=== PATIENT | female | born 1955 | race Caucasian/White ===

== ENCOUNTER 2021-11-11 11:15 | Outpatient (CLI) | payer OTHER | END 2021-11-11 11:16 | disposition home or self-care (01) | LOC: CSHMAMMO 11:15 | PROVIDERS: ATTEND Family Medicine | DX: Z12.31 Encounter for screening mammogram for malignant neoplasm of breast (principal); Z98.890 Other specified postprocedural states | CPT/HCPCS: 77063; 77067 ==

== ENCOUNTER 2021-12-20 08:55 | Outpatient (CLI) | payer OTHER ==
[2021-12-20 21:47] LABS: SARS-CoV-2 PCR by NAA Not Detected (NotDetected)
== END 2021-12-20 08:56 | disposition home or self-care (01) ==
LOC: CSHLAB 08:55
PROVIDERS: ATTEND Internal Medicine Gastroenterology
DX: Z20.822 Contact with and (suspected) exposure to COVID-19 (principal); Z12.11 Encounter for screening for malignant neoplasm of colon
CPT/HCPCS: U0003; U0005

== ENCOUNTER 2021-12-23 05:55 | Day surgery (SDC) | payer OTHER ==
[2021-12-20 15:51] VITALS: BMI 30.9
[2021-12-23] MEDS ORDERED: Lidocaine 1% MPF 2 ML VIAL ONE (06:42)
[2021-12-23] MEDS ORDERED: PROPOFOL 40 ML ONE (07:18)
[2021-12-23] MEDS ORDERED: PROPOFOL 20 ML ONE ×3 (08:00→08:38)
== END 2021-12-23 09:37 | disposition home or self-care (01) ==
LOC: CSHSDC 05:55
PROVIDERS: ATTEND Internal Medicine Gastroenterology
PROC: 0DBN8ZZ Excision of Sigmoid Colon, Via Natural or Artificial Opening Endoscopic (ICD-10-PCS; principal; 2021-12-23)
DX: Z12.11 Encounter for screening for malignant neoplasm of colon (principal); K63.5 Polyp of colon; K57.30 Diverticulosis of large intestine without perforation or abscess without bleeding; K56.699 Other intestinal obstruction unspecified as to partial versus complete obstruction; I10 Essential (primary) hypertension; F41.9 Anxiety disorder, unspecified; F32.A Depression, unspecified; G47.00 Insomnia, unspecified
CPT/HCPCS: 88305; J2704

== ENCOUNTER 2023-12-24 15:58 | Emergency (ER) | payer MEDICARE, BC | END 2023-12-24 18:23 | disposition home or self-care (01) | LOC: CSHERS 15:58 | DX: S20.20XA Contusion of thorax, unspecified, initial encounter (principal); E78.5 Hyperlipidemia, unspecified; I10 Essential (primary) hypertension; W18.2XXA Fall in (into) shower or empty bathtub, initial encounter ==